=== PATIENT | male | born 1935 | race Caucasian/White ===

== ENCOUNTER 2017-06-19 02:28 | Observation (INO) | payer MEDICARE, OTHER ==
[~2017-06-19] VITALS: Ht 182.9 cm; Wt 97.6 kg
--- NOTE | 2017-06-19 02:30 | NUR ---
PT IMMEDIATELY TO RM 9.
[2017-06-19 02:55] LABS: HEMATOCRIT 40.1 % (39.0-50.0); HEMOGLOBIN 13.6 g/dl (14.0-18.0); IMMATURE GRANULOCYTES 0.5 % (0.0-1.0); MEAN CELL VOLUME 91.6 fL CALC (80.0-100.0); MEAN CORPUSCULAR HGB 31.1 pG CALC (26.0-32.0); MEAN CORPUSCULAR HGB CONC 33.9 g/L CALC (32.0-36.0); RED BLOOD COUNT 4.38 mill/uL (4.70-6.10); RED CELL DISTRI WIDTH 12.8 % (11.5-15.5)
--- NOTE | 2017-06-19 03:02 | NUR ---
CXR IN PROGRESS
[2017-06-19 03:10] LABS: ALBUMIN 4.1 g/dL (3.2-5.0); ALKALINE PHOSPHATASE 65 u/l (38-126); AMYLASE 36 u/l (30-110); ANION GAP 16 (6-22 (CALC)); BILIRUBIN, TOTAL 0.6 mg/dL (0.0-1.4); BUN 16 mg/dL (8-23); BUN/CREATININE RATIO 17 (12-20 (CALC)); CARBON DIOXIDE 25 mmol/l (22-30); CHLORIDE 95 mmol/l (95-108); CREATININE 0.9 mg/dL (0.7-1.3); GFR > 60 ML/MIN (>=60 (CALC)); GFR FOR AFR.AMER. > 60 ML/MIN (>=60 (CALC)); LIPASE 108 u/l (23-300); POTASSIUM 4.5 mmol/l (3.5-5.1); SGOT/AST 33 u/l (19-48); SGPT/ALT 35 u/l (11-66); SODIUM 131 mmol/l (137-146); TOTAL PROTEIN 6.5 g/dL (6.3-8.2)
[2017-06-19 03:19] LABS: ACT PARTIAL THROMBO TIME 32.8 SECONDS (20.0-32.5); PROTHROMBIN TIME 11.4 SECONDS (9.0-12.5)
[2017-06-19 03:22] LABS: MYOGLOBIN 66 ng/mL (0 - 121)
--- NOTE | 2017-06-19 03:56 | NUR ---
TO CT VIA W/C
--- NOTE | 2017-06-19 04:58 | NUR ---
DR TO BS TO RE-EVAL PT.
--- NOTE | 2017-06-19 05:28 | NUR ---
REPORT TO AIME. pT RESTING. NAD
--- NOTE | 2017-06-19 05:30 | NUR ---
PT TRANSFERRED TO FLOOR VIA STRETCHER ACCOMPANIED BY SELINA SCOTT AND FAMILY;PT AMBULATED TO BEDSIDE WITH WEAK GAIT;WT AND VS OBTAINED;PT ORIENTED TO ROOM AND CALL LIGHT SYSTEM;ASSESSMENT COMPLETED;A&O X3,PT NOTED TO BE HARD OF HEARING;PT REPORTS MID-STERNAL CHEST PAIN WITH ONE DAY OF ONSET,NOTHING MAKES IT BETTER OR WORSE;PT CURRENT PAIN LEVEL 8/10,MD TO BE NOTIFIED;TELE MONITOR IN PLACE;NITRO OINTMENT TO LEFT CHEST;RESPIRATIONS EVEN AND UNLABORED ON RA,CLEAR LUNG SOUNDS NOTED;#18G TO LAC FLUSHED AND PATENT;LAST BM 06/18/17;ABDOMEN SOFT ON PALPATION,ACTIVE BOWEL SOUNDS IN ALL 4 QUADS;PERRLA;WEAK PEDAL PULSES;SKIN INTACT;FALL PRECAUTIONS IN PLACE AND PT ENCOURAGED TO CALL FOR ASSISTANCE IF NEEDED;BED IN LOWEST POSITION WITH CALL LIGHT IN REACH;WILL CONTINUE TO MONITOR
--- NOTE | 2017-06-19 05:30 | NUR ---
PT TO FLOOR WITHOUT INCIDENT.
[2017-06-19 05:39] VITALS: BP 144/65
--- NOTE | 2017-06-19 06:20 | NUR ---
NEW ORDER RECEIVED FROM
--- NOTE | 2017-06-19 06:35 | NUR ---
PT MEDICATED WITH MORPHINE 2MG IVP FOR EPIGASTRIC/CHEST PAIN RATING 8/10 ON THE PAIN SCALE;WILL MONITOR FOR EFFECTIVENESS
[2017-06-19 07:45] VITALS: BP 112/56
--- NOTE | 2017-06-19 07:45 | NUR ---
ASSESSMENT IS COMPLETED: IV SITE IS FREE FROM REDNESS OR EDEMA. FAMILY IN THE ROOM. CONTINUES TO C/O ABD PAIN AND DISCOMFORT. WILL TALK WITH LAURA FELDMAN RE: ABD PAIN, MORPHINE WAS NOT HELPING. CONTINUE TO OSBERVE AND MONITOR.
--- NOTE | 2017-06-19 09:30 | NUR ---
MEDICATION WAS GIVEN , PT INQUIRED HOW LONG DOES IT TAKE TO COME IN EFFECT. WILL RECHECK IN 30 MINUTES. PT SITTING UP ON THE SIDE OF THE BED WITHIN 30-45MINUTES. GAVE MORPHINE AND THEN PT FINALLY WENT TO SLEEP.
[2017-06-19 10:19] LABS: URINE BILIRUBIN - DIPSTICK NEGATIVE (NEGATIVE); URINE BLOOD DIPSTICK NEGATIVE (NEGATIVE); URINE COLOR YELLOW; URINE GLUCOSE - DIPSTICK >=1000 mg/dL (NEGATIVE); URINE KETONE TRACE mg/dL (NEGATIVE); URINE LEUK ESTERASE NEGATIVE (NEGATIVE); URINE NITRITE - DIPSTICK NEGATIVE (Negative); URINE PH 6.5 (4.5-8.0); URINE PROTEIN - DIPSTICK NEGATIVE (NEG-TRACE); URINE SPECIFIC GRAVITY 1.015; URINE UROBILINOGEN - DIPSTICK 0.2 E.U./dL (0.2)
[2017-06-19] MEDS ORDERED: METFORMIN500 MG PO (10:24)
[2017-06-19 10:25] LABS: URINE CLARITY CLEAR
[2017-06-19] MEDS ORDERED: GLIMEPIRIDE4 MG PO (10:28)
[2017-06-19] MEDS ORDERED: LISINOPRIL5 MG PO (10:28)
[2017-06-19] MEDS ORDERED: TRULICITY0.75 MG/0. SC (10:38)
[2017-06-19] MEDS ORDERED: PIOGLITAZONE HC30 MG PO (10:41)
[2017-06-19] MEDS ORDERED: JARDIANCE25 MG PO (10:41)
[2017-06-19] MEDS ORDERED: SIMVASTATIN40 MG PO (10:42)
[2017-06-19] MEDS ORDERED: NASACORT A55 MCG/ACT NAB (10:50)
[2017-06-19 11:06] VITALS: BP 114/56
--- NOTE | 2017-06-19 11:30 | NUR ---
PT IS RESTING WITH EYES CLOSED FAMILY IN THE ROOM. LOOKS COMFORTABLE AT THIS TIME. CONTINUE TO OBSERVE AND MONTIOR.
--- NOTE | 2017-06-19 12:25 | NUR ---
PT IS RELAXING IN BED WITH FAMILY IN THE ROOM; CONTINUE TO OBSERVE AND MONITOR.
[2017-06-19 15:22] VITALS: BP 129/59
--- NOTE | 2017-06-19 16:00 | NUR ---
PT IS RESTING WITH EYES CLOSED FAMILY IN THE ROOM. IV SITE IS FREE FROMR EDNESS OR EDEMA. CONTINUE TO OSBERVE AND MONITOR.
--- NOTE | 2017-06-19 16:08 | NUR ---
Patient is feeling okay. Glucose today is 209 mg/dl. Patient was given Novolog 1 Unit SC at 0817 and 1 unit at 1114. c
--- NOTE | 2017-06-19 19:20 | NUR ---
REPORT RECEIVED FROM IRINA HALEY;PT RESTING IN BED WITH AT BEDSIDE;INTRODUCED SELF TO PT AND POC DISCUSSED;PT DENIES ANY NEEDS AT THIS TIME;ENCOURAGED PT TO CALL FOR ASSISTANCE IF NEEDED;CALL LIGHT IN REACH;WILL CONTINUE TO MONITOR
[2017-06-19 20:05] VITALS: BP 114/59
--- NOTE | 2017-06-19 21:20 | NUR ---
PT RESTING IN SEMI FOWLERS POSITION;A&O X3;ASSESSMENT COMPLETED;RESPIRATIONS EVEN AND UNLABORED RA,CLEAR LUNG SOUNDS NOTED;ABDOMEN SOFT UPON PALPATION;STRONG PEDAL PULSES;PT DENIES ANY CHEST PAIN AT THIS TIME;#18G TO LAC INFUSING NS @ 100ML/HR,SITE APPEARS HEALTHY AND FREE FROM EDEMA;TELE MONITOR IN PLACE;BLANKET AND PILLOW PROVIDED FOR SPOUSE;PT DENIES ANY NEEDS AT THIS TIME;SAFETY PRECAUTIONS REINFORCED WITH CALL LIGHT IN REACH;WILL CONTINUE TO MONITOR
[2017-06-20] VITALS (7 sets, daily range): BP systolic 106–134; BP diastolic 37–70
--- NOTE | 2017-06-20 00:55 | NUR ---
PT APPEARS TO BE SLEEPING IN SEMI FOWLERS POSITION;WOKE PT TO OBTAIN VS,WAKES TO VERBAL STIMULI;CURRENT TEMP 100.0,BLANKETS REMOVED AND AC LOWERED;PT DENIES ANY CHEST PAIN OR NEEDS;PT EDUCATED ON THE NEED FOR A STOOL SAMPLE AND VERBALIZES UNDERSTANDING;CALL LIGHT IN REACH;WILL CONTINUE TO MONITOR
--- NOTE | 2017-06-20 04:50 | NUR ---
PT RESTING IN BED WITH SPOUSE AT BEDSIDE;PT DENIES ANY CHEST PAIN;IV FLUIDS INFUSING WELL TO LAC;TELE MONITOR IN PLACE;CURRENT TEMP 99.0;VS OBTAINED;PT ENCOURAGED TO CALL FOR ASSISTANCE IF NEEDED;CALL LIGHT IN REACH;WILL CONTINUE TO MONITOR
[2017-06-20 05:56] LABS: ANION GAP 16 (6-22 (CALC)); BUN 16 mg/dL (8-23); BUN/CREATININE RATIO 18 (12-20 (CALC)); CARBON DIOXIDE 24 mmol/l (22-30); CHLORIDE 95 mmol/l (95-108); CREATININE 0.9 mg/dL (0.7-1.3); GFR > 60 ML/MIN (>=60 (CALC)); GFR FOR AFR.AMER. > 60 ML/MIN (>=60 (CALC)); MAGNESIUM 1.5 mg/dL (1.6-2.3); SODIUM 130 mmol/l (137-146)
[2017-06-20 05:57] LABS: CHOLESTEROL HDL RATIO 1.5 (<4.4 (CALC))
[2017-06-20 06:00] LABS: POTASSIUM 5.4 mmol/l (3.5-5.1)
[2017-06-20 06:01] LABS: HEMATOCRIT 40.7 % (39.0-50.0); HEMOGLOBIN 13.7 g/dl (14.0-18.0); IMMATURE GRANULOCYTES 0.8 % (0.0-1.0); MEAN CELL VOLUME 92.7 fL CALC (80.0-100.0); MEAN CORPUSCULAR HGB 31.2 pG CALC (26.0-32.0); MEAN CORPUSCULAR HGB CONC 33.7 g/L CALC (32.0-36.0); NEUT# 12.36 thou/uL (1.82-7.42); RED BLOOD COUNT 4.39 mill/uL (4.70-6.10)
--- NOTE | 2017-06-20 08:10 | NUR ---
PT SITTING IN CHAIR; SPOUSE IN ROOM; PT DENIES PAIN OR DISCOMFORT; TELE MONITOR IN PLACE; IVF INFUSING WITHOUT DIFFICULTY; CALL GAMBOA WITHIN REACH; WILL CONTINUE TO MONITOR.
--- NOTE | 2017-06-20 13:30 | NUR ---
PT AMBULATORY IN ROOM; FAMILY IN TO VISIT; CALL GAMBOA WITHIN REACH; WILL CONTINUE TO MONITOR.
[2017-06-20 14:32] LABS: BUN 17 mg/dL (8-23); BUN/CREATININE RATIO 18 (12-20 (CALC)); CARBON DIOXIDE 20 mmol/l (22-30); CHLORIDE 96 mmol/l (95-108); CREATININE 0.9 mg/dL (0.7-1.3); GFR > 60 ML/MIN (>=60 (CALC)); GFR FOR AFR.AMER. > 60 ML/MIN (>=60 (CALC)); SODIUM 130 mmol/l (137-146)
[2017-06-20 14:35] LABS: ANION GAP 19 (6-22 (CALC)); POTASSIUM 5.4 mmol/l (3.5-5.1)
--- NOTE | 2017-06-20 14:42 | NUR ---
DR. SCHMIDT IN TO SEE PT; PLAN OF CARE DISCUSSED
--- NOTE | 2017-06-20 17:46 | NUR ---
PT IN RECLINER VISITING WITH FAMILY; IVF INFUSING WELL; NO COMPLAINTS VOICED; CALL GAMBOA WITHIN REACH; WILL CONTINUE TO MONITOR.
--- NOTE | 2017-06-20 19:15 | NUR ---
REPORT RECEIVED FROM SELINA MARTE;PT AND SPOUSE UP TO BEDSIDE;INTRODUCED SELF TO PT AND POC DISCUSSED;PT DENIES ANY CP AT THIS TIME;PT ENCOURAGED TO CALL FOR ASSISTANCE IF NEEDED;CALL LIGHT IN REACH;WILL CONTINUE TO MONITOR
--- NOTE | 2017-06-20 21:15 | NUR ---
PT RESTING IN BED WITH SPOUSE AT BEDSIDE;A&O X3,HARD OF HEARING NOTED;ASSESSMENT COMPLETED;RESPIRATIONS EVEN AND UNLABORED ON RA,CLEAR LUNG SOUNDS;NON-PRODUCTIVE COUGH NOTED;ABDOMEN SOFT,ACTIVE IN ALL 4 QUADS;STRONG PEDAL PULSES;TELE MONITOR IN PLACE;#18G TO LAC INFUSING NS @ 100ML/HR WELL,SITE APPEARS HEALTHY;PT ENCOURAGED PO FLUIDS AND TO VOID IN THE URINAL FOR ACCURATE I&O'S THROUGHOUT SHIFT;TEMP 100.1,AC LOWERED AND BLANKET REMOVED;SKIN INTACT;PAIN SCALE AND REPORTING REVIEWED;SAFETY PRECAUTIONS REINFORCED WITH BED IN THE LOWEST POSITION;CALL LIGHT IN REACH;WILL CONTINUE TO MONITOR
--- NOTE | 2017-06-21 | NUR ---
WOKE PT TO ADMINISTER SCHEDULED MEDICATION;SPOUSE REMAINS AT BEDSIDE;PT VOICES NO COMPLAINTS OF PAIN;TELE MONITOR IN PLACE;IV FLUIDS INFUSING WELL TO LAC;PT ENCOURAGED PO FLUIDS;URINAL AT BEDSIDE;WILL CONTINUE TO MONITOR
--- NOTE | 2017-06-21 04:00 | NUR ---
PT APPEARS TO BE SLEEPING WITH SPOUSE AT BEDSIDE;WOKE PT TO OBTAIN VS;PT DENIES ANY PAIN OR DISCOMFORTS TO HIS CHEST;RESPIRATIONS EVEN AND UNLABORED ON RA;IV FLUIDS INFUSING WELL TO LAC;TELE MONITOR IN PLACE;CALL LIGHT IN REACH;WILL CONTINUE TO MONITOR
[2017-06-21 04:01] VITALS: BP 116/52
--- NOTE | 2017-06-21 04:25 | NUR ---
PT TRANSFERRED TO [facility] VIA WC ACCOMPANIED BY WRITTER
--- NOTE | 2017-06-21 04:35 | NUR ---
PT RETURNED BACK TO FLOOR
[2017-06-21 05:04] LABS: HEMOGLOBIN 11.9 g/dl (14.0-18.0); IMMATURE GRANULOCYTES 0.5 % (0.0-1.0); MEAN CELL VOLUME 91.6 fL CALC (80.0-100.0); MEAN CORPUSCULAR HGB 31.2 pG CALC (26.0-32.0); NEUT# 6.82 thou/uL (1.82-7.42); RED BLOOD COUNT 3.82 mill/uL (4.70-6.10); RED CELL DISTRI WIDTH 13.1 % (11.5-15.5)
[2017-06-21 05:34] LABS: ANION GAP 12 (6-22 (CALC)); BUN 16 mg/dL (8-23); BUN/CREATININE RATIO 18 (12-20 (CALC)); CARBON DIOXIDE 23 mmol/l (22-30); CHLORIDE 100 mmol/l (95-108); CREATININE 0.9 mg/dL (0.7-1.3); GFR > 60 ML/MIN (>=60 (CALC)); GFR FOR AFR.AMER. > 60 ML/MIN (>=60 (CALC)); POTASSIUM 4.1 mmol/l (3.5-5.1); SODIUM 130 mmol/l (137-146)
--- NOTE | 2017-06-21 08:00 | NUR ---
PT UP IN CHAIR; TOLERATING BREKFAST WELL; TELE MONITOR IN PLACE; IVF INFUSING WITHOUT DIFFICULTY; NO COMPLAINTS OF PAIN OR DISCOMFORT VOICED; CALL GAMBOA WITHIN REACH; WILL CONTINUE TO MONITOR.
[2017-06-21 08:03] VITALS: BP 110/73
[2017-06-21 10:59] VITALS: BP 123/65
[2017-06-21] MEDS ORDERED: PANTOPRAZOLE SO40 M1 PO (11:01)
[2017-06-21] MEDS ORDERED: SUCRALFATE1 GM/10 ML PO (11:01)
--- NOTE | 2017-06-21 11:36 | NUR ---
DR. SCHMIDT IN TO SEE PT; PLAN OF CARE DISCUSSED
--- NOTE | 2017-06-21 13:08 | NUR ---
Discharge instructions given. Patient verbalizes understanding of same. Discharged in stable condition via Wheelchair to Home with family. All belongings sent with pt.
== END 2017-06-21 13:00 | disposition home or self-care (01) ==
LOC: ED 02:28 → ED-I 04:00 → ED 05:11 → MS2 05:12
PROVIDERS: Emergency Medicine; Internal Medicine; Nurse Practitioner Family; ADMIT Internal Medicine; ATTEND Internal Medicine
DX: R07.89 Other chest pain (principal); K21.9 Gastro-esophageal reflux disease without esophagitis; E11.9 Type 2 diabetes mellitus without complications; E78.5 Hyperlipidemia, unspecified; K22.5 Diverticulum of esophagus, acquired; E87.1 Hypo-osmolality and hyponatremia; K31.89 Other diseases of stomach and duodenum; R19.5 Other fecal abnormalities; R50.9 Fever, unspecified; Z79.84 Long term (current) use of oral hypoglycemic drugs
CPT/HCPCS: J3475; Q9967

== ENCOUNTER 2017-07-22 07:47 | Day surgery (SDC) | payer MEDICARE, OTHER ==
[~2017-07-22] VITALS: Ht 182.9 cm; Wt 97.1 kg
[~2017-07-22 07:47] MED LIST: ADULT ASPIRIN R81 MG PO; B-121000 MCG PO; CARAFATE1 GM/10 ML PO; D3400 UNI1 PO; GLIMEPIRIDE4 MG PO; JARDIANCE25 MG PO; LISINOPRIL5 MG PO; METFORMIN HCL1000 MG PO; METFORMIN500 MG PO; NASACORT A55 MCG/ACT NAB; PANTOPRAZOLE SO40 M1 PO; PIOGLITAZONE HC30 MG PO; SIMVASTATIN40 MG PO; SIMVASTATIN80 MG PO; SUCRALFATE1 GM/10 ML PO; TRULICITY0.75 MG/0. SC; VIT B6 PO
[2017-07-22 11:47] VITALS: BP 164/73
== END 2017-07-22 10:30 | disposition home or self-care (01) ==
LOC: ENDO 07:47 → ORM 09:45 → ENDO 10:30
PROVIDERS: ATTEND Surgery
PROC: 0DB48ZX Excision of Esophagogastric Junction, Via Natural or Artificial Opening Endoscopic, Diagnostic (ICD-10-PCS; principal; 2017-07-22)
PROC: 0DB78ZX Excision of Stomach, Pylorus, Via Natural or Artificial Opening Endoscopic, Diagnostic (ICD-10-PCS; 2017-07-22)
PROC: 0DJD8ZZ Inspection of Lower Intestinal Tract, Via Natural or Artificial Opening Endoscopic (ICD-10-PCS; 2017-07-22)
DX: K29.51 Unspecified chronic gastritis with bleeding (principal); K29.81 Duodenitis with bleeding; K44.9 Diaphragmatic hernia without obstruction or gangrene; K57.30 Diverticulosis of large intestine without perforation or abscess without bleeding; E11.9 Type 2 diabetes mellitus without complications

== ENCOUNTER 2018-03-10 06:16 | Day surgery (SDC) | payer MEDICARE, OTHER ==
[~2018-03-10] VITALS: Ht 182.9 cm; Wt 97.5 kg
[~2018-03-10 06:16] MED LIST changes: +CALCI23 PO; +ECHINACE9 PO; +STOOL SOFTE1 PO; +SUPER BETA PROSTATE PO; +VITAMIN7 PO
[2018-03-10 08:40] VITALS: BP 136/63
== END 2018-03-10 08:20 | disposition home or self-care (01) ==
LOC: ENDO 06:16 → ORM 08:15 → ENDO 08:15
PROVIDERS: ATTEND Surgery
PROC: 0DB48ZX Excision of Esophagogastric Junction, Via Natural or Artificial Opening Endoscopic, Diagnostic (ICD-10-PCS; principal; 2018-03-10)
DX: K22.8 Other specified diseases of esophagus (principal); E11.9 Type 2 diabetes mellitus without complications; Z79.84 Long term (current) use of oral hypoglycemic drugs

== ENCOUNTER 2023-06-02 12:32 | Inpatient (IN) | payer MEDICARE, OTHER ==
[2023-06-02] VITALS (21 sets, daily range): BP systolic 95–147; BP diastolic 47–82
[~2023-06-02] VITALS: Ht 182.9 cm; Wt 83.3 kg
--- NOTE | 2023-06-02 12:40 | NUR ---
[facility]ARON TO ROOM 14 VIA EMS
[2023-06-02 13:13] LABS: BASO% 0.1 % (0-3); HEMATOCRIT 33.6 % (39.0-50.0); HEMOGLOBIN 10.8 g/dl (14.0-18.0); IMMATURE GRANULOCYTES 0.6 % (0.0-5.0); LYMPH% 3.2 % (15-41); MEAN CELL VOLUME 97.7 fL CALC (80.0-100.0); MEAN CORPUSCULAR HGB 31.4 pG CALC (26.0-32.0); MEAN CORPUSCULAR HGB CONC 32.1 g/dL CAL (32.0-36.0); MONO% 11.7 % (2-13); NEUT# 7.43 thou/uL (1.82-7.42); NEUT% 84.4 % (42-76); RED BLOOD COUNT 3.44 mill/uL (4.70-6.10); RED CELL DISTRI WIDTH 13.8 % (11.5-15.5)
[2023-06-02 13:13] LABS: URINE BILIRUBIN - DIPSTICK Negative (NEGATIVE); URINE BLOOD DIPSTICK Moderate (NEGATIVE); URINE GLUCOSE - DIPSTICK >=1000 mg/dL (NEGATIVE); URINE KETONE Negative (NEGATIVE); URINE LEUK ESTERASE Trace (NEGATIVE); URINE NITRITE - DIPSTICK Negative (Negative); URINE PH 5.5 (4.5-8.0); URINE PROTEIN - DIPSTICK 100 mg/dL (NEG-TRACE); URINE SPECIFIC GRAVITY 1.015; URINE UROBILINOGEN - DIPSTICK 0.2 E.U./dL (0.2)
[2023-06-02 13:16] LABS: URINE COLOR Yellow
[2023-06-02 13:23] LABS: URINE SQUAMOUS EPITHELIAL CELL RARE EPI/hpf (0-FEW)
[2023-06-02 13:24] LABS: URINE BACTERIA MANY hpf
[2023-06-02 13:27] LABS: ALBUMIN 3.8 g/dL (3.2-5.0); ALKALINE PHOSPHATASE 48 u/l (38-126); BILIRUBIN, TOTAL 0.5 mg/dL (0.2-1.3); BUN 33 mg/dL (8-23); BUN/CREATININE RATIO 32 (12-20 (CALC)); CARBON DIOXIDE 29 mmol/l (22-30); CHLORIDE 95 mmol/l (95-108); CREATININE 1.1 mg/dL (0.7-1.3); GFR FOR AFR.AMER. > 60 ML/MIN (>=60 (CALC)); GFR OTHER RACES > 60 ML/MIN (>=60 (CALC)); SGOT/AST 38 u/l (19-48); SODIUM 132 mmol/l (137-146); TOTAL PROTEIN 6.3 g/dL (6.3-8.2)
[2023-06-02 13:30] LABS: ANION GAP 12 (6-22 (CALC)); POTASSIUM 3.8 mmol/l (3.5-5.1)
[2023-06-02] MEDS ORDERED: TAMSULOSIN HCL0.4 MG PO (14:01)
[2023-06-02] MEDS ORDERED: JARDIANCE25 MG PO (14:03)
[2023-06-02] MEDS ORDERED: FUROSEMIDE20 MG PO (14:05)
[2023-06-02] MEDS ORDERED: OZEMPIC2 MG SC (14:13)
--- NOTE | 2023-06-02 15:40 | NUR ---
PATIENT AND DAUGHTER LEAVING AT THSI TIME. PATIENT AN DFAMILY STATES UNDERSTANDING OF ADMISSION AND AGREE TO STAY.
--- NOTE | 2023-06-02 17:28 | NUR ---
REPORT CALLED TO NURSE BUTLER ON MEDICAL/SURGICAL
--- NOTE | 2023-06-02 18:19 | NUR ---
PT ARRIVED TO [place] VIA BED. PT UNABLE TO STAND. PT A/O3 HARD OF HEARING. IV SITE NOTED FLUIDS INFUSING. HEART RHYTHM ON MONITOR. RESPIRATIONS ON ROOM AIR. PT ON MALE PUREWICK FOR VOIDING. PT STATED LAST BM 06/01/23. PT NOTED EDEMA ON BILATERAL LEGS AND NOTED SKINTEARS AND REDNESS DUE TO FALLS AT HOME. PT DENIES ADDITIONAL NEEDS AT THE TIME DIETARY CALLED FOR PT TRAY. ALL SAFETY PRECAUTIONS IN PLACE WITH CALL LIGHT IN REACH AND BED ALARM ACTIVE.
--- NOTE | 2023-06-02 19:24 | NUR ---
Bedside report reveived from off going nurse. Patient resting in bed with eyes open. Denies pain or discomfort at this time. Patient is alert and orinetd but hard of hearing. Able to understand others when spoken to in left ear and reads lips. Supper tray at bedside and patient states that he will eat later. Respirations even and unlabored on room air. IV fluids in place. Safety measures in place.
--- NOTE | 2023-06-02 22:24 | NUR ---
Patient resting with eyes closed in bed. Respirations even and unlabored on room air. IV fluids continue. No signs of distress noted. Safety measures in place. Call light within reach.
[2023-06-03 00:13] VITALS: BP 132/66
--- NOTE | 2023-06-03 03:15 | NUR ---
Patient awake in bed requesting another throat lozenge. Also a snack was provided per patient request. Denies pain or discomfort. Respirations even and unlabored on room air. Call light within reach.
[2023-06-03 05:53] LABS: BASO% 0.1 % (0-3); HEMATOCRIT 32.4 % (39.0-50.0); HEMOGLOBIN 10.7 g/dl (14.0-18.0); IMMATURE GRANULOCYTES 0.1 % (0.0-5.0); MEAN CELL VOLUME 97.9 fL CALC (80.0-100.0); MEAN CORPUSCULAR HGB 32.3 pG CALC (26.0-32.0); NEUT# 6.28 thou/uL (1.82-7.42); NEUT% 85.8 % (42-76); RED BLOOD COUNT 3.31 mill/uL (4.70-6.10); RED CELL DISTRI WIDTH 13.9 % (11.5-15.5)
[2023-06-03 06:25] LABS: ALBUMIN 3.2 g/dL (3.2-5.0); ALKALINE PHOSPHATASE 45 u/l (38-126); ANION GAP 7 (6-22 (CALC)); BILIRUBIN, TOTAL 0.4 mg/dL (0.2-1.3); BUN 31 mg/dL (8-23); BUN/CREATININE RATIO 31 (12-20 (CALC)); CARBON DIOXIDE 33 mmol/l (22-30); CHLORIDE 97 mmol/l (95-108); GFR FOR AFR.AMER. > 60 ML/MIN (>=60 (CALC)); GFR OTHER RACES > 60 ML/MIN (>=60 (CALC)); MAGNESIUM 1.3 mg/dL (1.6-2.3); POTASSIUM 3.7 mmol/l (3.5-5.1); SGOT/AST 41 u/l (19-48); SODIUM 134 mmol/l (137-146); TOTAL PROTEIN 5.3 g/dL (6.3-8.2)
--- NOTE | 2023-06-03 07:16 | NUR ---
PT RESTING IN LOW FOWLERS POSITION. PT A/O PT WEAK .PT ABLE TO USE CALL LIGHT FOR NEEDS PER REPORT. IV SITE NOTED INFUSING WITH FLUIDS. PT TEMP NOTED NIGHT NURSE MEDICATED PER EMAR. PT SHIVERING PER NIGHT NURSE UNABLE TO NOTE BP PER PT SHAKING. PT RESPIRATIONS ON ROOM AIR TELE NOTED. PT DENIES ADDITIONAL NEEDS AT THE TIME ALL SAFETY PECAUTIONS IN PLACE WITH CALL LIGHT INREACH.
[2023-06-03 07:24] VITALS: BP 119/52
--- NOTE | 2023-06-03 09:24 | NUR ---
PT HAD BM INCON ON BATHROOM FLOOR. PT WAS GIVEN A FULL BATH, NEW GOWN AND NEW BRIEF. PT SITTING UP IN CHAIR NOW.
[2023-06-03 11:09] VITALS: BP 111/51
--- NOTE | 2023-06-03 12:02 | NUR ---
PT REQUESTED ICE CREAM , DIETARY INFORMED STATED WILL BRING ICECREAM IF AVAILABLE. ONLY VANILLA POSSIBLY AVAILABLE.
[2023-06-03 15:35] VITALS: BP 111/44
--- NOTE | 2023-06-03 16:40 | NUR ---
PT NOTED MINIMAL URINE OUPUT PROVIDER NOTIFIED.PT USING URINAL IN BED URINE NOT FALLING INTO URINAL VOIDING ON GOWN , PT CLEANED UP AND PROVIDED NEW GOWN.
--- NOTE | 2023-06-03 17:30 | NUR ---
PROVIDER NOTIFIED OF PT OUTPUT MINIMAL. ONLY 50 NOTED IN URINAL . PT STATED URINE IS DRIBBLING OUT . PT BLADDER SCANNED PER ORDER. 1404 NOTED IN URINE REASSESSED WITH RN GREATER THAT 1545 NOTED . NOTIFIED OF BLADDER SCAN ORDER FOR MARIA. PT RECIEVED MARIA SLIGHT DIFFUCULTY UPON PLACING DUE TO HX OF ENLARGED PROSTATE. MARIA IN PLACE DRAINING PER GRAVITY OUTPUT OF 1600. PT DENIES ADDITIONAL NEEDS AT THE TIME OTHER THAN ICE CREAM PER REQUEST ALL SAFETY PRECAUTIONS IN PLACE WITH BED ALARM ACTIVE.
--- NOTE | 2023-06-03 18:17 | NUR ---
PT UP EATING AT THE TIME PT STATED COLD SHIVERING ROOM TEMP ADJUSTED, WARM SHEET PROVIDED. BP TO BE ASSESSED WHEN PT DONE EATING.
[2023-06-03 18:36] VITALS: BP 152/68
--- NOTE | 2023-06-03 18:38 | NUR ---
PT ADJUSTED INTO BED WITH BLANKETS AND WARM SHEETS, PT SHIVERING PT BP 152/68 HR 101 PT SHIVERING ANF REACHING FOR DRINKS ON BED SIDE TABLE. HR UNSTABLE ON TELE MONITOR READING.
--- NOTE | 2023-06-03 18:45 | NUR ---
SLIME MCKEON PROVIDED WITH PT EKG ORDERED.RT IN ROOM NOW.
--- NOTE | 2023-06-03 19:15 | NUR ---
PROVIDER AWARE OF PT EKG , HR RHYTHM PER ER MONITORING. SLIME MCKEON APPLIED EKG COMPLETED. STATED TO CHECK BLOOD SUGAR . 302 NOTED PT DID EAT DINNER AND HAD ICE CREAM PER REQUEST. NIGHT SHIFTNOTIFIED OF EVENT. NO NEW ORDERS AT THE TIME. PT RESTING IN BED STATES NO PAIN . PT AWARE OF EVENT PT STATED JUST COLD. ALL SAFETY PRECAUTIONS IN PLACE WITH CALL LIGHT IN REACH. BED ALARM ACTIVE.
[2023-06-03 19:22] VITALS: BP 122/55
--- NOTE | 2023-06-03 19:56 | NUR ---
Bedside report received from off going nurse. Patient awake in bed and talkative. Prior to shift change, MD contacted regarding patient heart rate. New orders were placed and MD made aware of EKG results. Will continue to monitor patient for change in condition. Miguel A hugger in place for warmth. Extra blankets provided. IV fluids continue. Nance catheter in place and draining clear yellow urine. Safety measures in place.
[2023-06-03 20:39] LABS: HEMATOCRIT 27.8 % (39.0-50.0); HEMOGLOBIN 9.1 g/dl (14.0-18.0); MEAN CELL VOLUME 96.9 fL CALC (80.0-100.0); MEAN CORPUSCULAR HGB 31.7 pG CALC (26.0-32.0); MEAN CORPUSCULAR HGB CONC 32.7 g/dL CAL (32.0-36.0); RED BLOOD COUNT 2.87 mill/uL (4.70-6.10); RED CELL DISTRI WIDTH 13.8 % (11.5-15.5)
[2023-06-03 20:44] LABS: ANION GAP 10 (6-22 (CALC)); BUN 35 mg/dL (8-23); BUN/CREATININE RATIO 34 (12-20 (CALC)); CHLORIDE 98 mmol/l (95-108); GFR FOR AFR.AMER. > 60 ML/MIN (>=60 (CALC)); GFR OTHER RACES > 60 ML/MIN (>=60 (CALC)); POTASSIUM 3.2 mmol/l (3.5-5.1); SODIUM 128 mmol/l (137-146)
[2023-06-03 20:46] LABS: CARBON DIOXIDE 23 mmol/l (22-30)
[2023-06-04] VITALS (12 sets, daily range): BP systolic 80–124; BP diastolic 26–55
--- NOTE | 2023-06-04 01:18 | NUR ---
Patient repositioned in bed to lay supine but then proceeded to return to right side lying position. Patient educated on importance of off loading pressure. Patient verbalizes understanding. Nance catheter emptied. Water offered and patient accepted water to drink. Denies pain or discomfort. Safety meaures in place. IV fluids continue. Call light within reach.
--- NOTE | 2023-06-04 05:10 | NUR ---
Patient sitting up on edge of bed. Respirations even and unlabored on room air. Denies pain or discomfort at this time. Water provided. Safety measures in place. IV fluids continue. Call light within reach.
[2023-06-04 06:22] LABS: BASO% 0.3 % (0-3); HEMATOCRIT 28.3 % (39.0-50.0); HEMOGLOBIN 9.5 g/dl (14.0-18.0); IMMATURE GRANULOCYTES 0.4 % (0.0-5.0); LYMPH% 7.6 % (15-41); MEAN CELL VOLUME 97.6 fL CALC (80.0-100.0); MEAN CORPUSCULAR HGB 32.8 pG CALC (26.0-32.0); MEAN CORPUSCULAR HGB CONC 33.6 g/dL CAL (32.0-36.0); MONO% 9.8 % (2-13); NEUT# 6.32 thou/uL (1.82-7.42); NEUT% 81.9 % (42-76); RED BLOOD COUNT 2.9 mill/uL (4.70-6.10); RED CELL DISTRI WIDTH 13.7 % (11.5-15.5)
[2023-06-04 06:28] LABS: ALBUMIN 2.9 g/dL (3.2-5.0); ALKALINE PHOSPHATASE 54 u/l (38-126); ANION GAP 9 (6-22 (CALC)); BILIRUBIN, TOTAL 0.4 mg/dL (0.2-1.3); BUN 32 mg/dL (8-23); BUN/CREATININE RATIO 34 (12-20 (CALC)); CARBON DIOXIDE 27 mmol/l (22-30); CHLORIDE 99 mmol/l (95-108); CREATININE 0.9 mg/dL (0.7-1.3); GFR FOR AFR.AMER. > 60 ML/MIN (>=60 (CALC)); GFR OTHER RACES > 60 ML/MIN (>=60 (CALC)); POTASSIUM 3.7 mmol/l (3.5-5.1); SGOT/AST 42 u/l (19-48); SODIUM 131 mmol/l (137-146); TOTAL PROTEIN 5.1 g/dL (6.3-8.2)
[2023-06-04 06:39] LABS: MAGNESIUM 1.7 mg/dL (1.6-2.3)
--- NOTE | 2023-06-04 07:32 | NUR ---
pt alert, oriented, sitting up on side of bed, bp 91/52, hr 50, 95% on radillon noted, pt reports having a cough "sometimes" reports having yellow mucus with cough "sometimes". +2 edema noted to bilateral lower extremities, denies pain at this time.
--- NOTE | 2023-06-04 08:14 | NUR ---
Preliminary blood culture results of 1 of 4 bottles growing gram negative rods called to Maddie Jamison APRN. New order received to change ceftriaxone to cefepime.
--- NOTE | 2023-06-04 10:46 | NUR ---
Treatment on hold for this morning per nursing request as patient had just got back to bed and was recieving care from nursing. PT informed.
--- NOTE | 2023-06-04 20:00 | NUR ---
RECEIVED REPORT FROM NURSE SHANNA WALKER RESTING IN BED, ALERT ORIENTED, WITH SOME CONFUSIONS NOTED, IV ON RFA G 22 NS @ 100CC/HR INFUSING WELL, HOOKED ON TELEMETRY, LUNG SOUNDS CLEAR, DENIES PAIN , BS 350, NOTIFIED [employer] MANAGER [employer] OFFICER STARTED ON SLIDING SCALE, PATIENT HAS MARIA CATH DRAINING YELLOW CLOUDY URINE, CALL LIGHT IN REACH, BED ALARM IN PLACED.
--- NOTE | 2023-06-04 23:50 | NUR ---
PT WAS GIVEN DARRIUS CARE AND LINEN CHANGED, PT HAD NO BM, PROTECTIVE CREAM APPLIED TO BOTTOM . PT WAS POSTIONED ON RIGHT SIDE WITH PILLOWS.
[2023-06-05] VITALS (11 sets, daily range): BP systolic 90–109; BP diastolic 45–86
--- NOTE | 2023-06-05 | NUR ---
PATIENT REPOSITIONED, ON RT SIDE LYING, WANTED LIGHT ON, PATIEMT DENIES P[AIN AT THIS TIME, BREATHING EVEN UNLABORED.
--- NOTE | 2023-06-05 04:31 | NUR ---
patient weighed using katie lift 83.3kg
[2023-06-05 06:49] LABS: BASO% 0.3 % (0-3); EOS% 0.1 % (0-8); HEMATOCRIT 25.7 % (39.0-50.0); HEMOGLOBIN 8.4 g/dl (14.0-18.0); IMMATURE GRANULOCYTES 0.4 % (0.0-5.0); MEAN CELL VOLUME 97.7 fL CALC (80.0-100.0); MEAN CORPUSCULAR HGB 31.9 pG CALC (26.0-32.0); MEAN CORPUSCULAR HGB CONC 32.7 g/dL CAL (32.0-36.0); MONO% 9.8 % (2-13); NEUT# 5.43 thou/uL (1.82-7.42); NEUT% 77.4 % (42-76); RED BLOOD COUNT 2.63 mill/uL (4.70-6.10); RED CELL DISTRI WIDTH 13.9 % (11.5-15.5)
[2023-06-05 07:40] LABS: ALBUMIN 2.6 g/dL (3.2-5.0); ALKALINE PHOSPHATASE 73 u/l (38-126); ANION GAP 7 (6-22 (CALC)); BILIRUBIN, TOTAL 0.3 mg/dL (0.2-1.3); BUN 36 mg/dL (8-23); BUN/CREATININE RATIO 36 (12-20 (CALC)); CARBON DIOXIDE 27 mmol/l (22-30); CHLORIDE 100 mmol/l (95-108); GFR FOR AFR.AMER. > 60 ML/MIN (>=60 (CALC)); GFR OTHER RACES > 60 ML/MIN (>=60 (CALC)); MAGNESIUM 1.5 mg/dL (1.6-2.3); POTASSIUM 3.3 mmol/l (3.5-5.1); SGOT/AST 90 u/l (19-48); SODIUM 130 mmol/l (137-146); TOTAL PROTEIN 4.6 g/dL (6.3-8.2)
--- NOTE | 2023-06-05 10:07 | NUR ---
SUE AT BEDSIDE DISCUSSING PLAN OF CARE WITH PT AND FAMILY.
--- NOTE | 2023-06-05 11:19 | NUR ---
CONCENT SIGNED BY , BLOOD PRODUCT CHECKED AND VERIFIED WITH 2ND NURSE, VITALS PRE INFUSION 96.7, HR 61, BP 105/51, O2 AT 100% ON ROOM AIR. INFUSIONS STARTED.
--- NOTE | 2023-06-05 12:40 | NUR ---
DR JUDD AT BEDSIDE DISCUSSING PLAN OF CARE WITH PT.
--- NOTE | 2023-06-05 14:47 | NUR ---
RBC'S COMPLETED, PT TOLERATED WITHOUT ANY ISSUES.
--- NOTE | 2023-06-05 20:00 | NUR ---
RECEIVED BEDSIDE REPORT FROM DAYSHIFT NURSE. PT IS SITTING IN SIDE OF BED SLEEPING. PT HAS BEEN MADE AWARE OF CHANGE OF SHIFT AND OF NURSE. PLAN OF CARE HAS BEEN ESTABLISHED WITH PT. NO PAIN CON COMPLAINTS AT THIS TIME. SFATEY PRECAUTIONS IN PLACE AND CALL LIGHT WITHIN REACH.
--- NOTE | 2023-06-06 | NUR ---
PT IS SLEEPING COMFORTABLY IN BED AT THIS TIME. NO SIGNS OF PAIN OR DISCOMFORT AT THIS MOMENT. SAFETY PRECAUTIONS IN PLACE AND CALL LIGHT WITHIN REACH.
[2023-06-06 00:07] VITALS: BP 113/57
--- NOTE | 2023-06-06 04:00 | NUR ---
PT IS SLEEPING COMFORTABLY IN BED AT THIS TIME. SAFETY PRECAUTIONSIN PLACE AND CALL LIGHT WITHIN REACH.
[2023-06-06 04:12] VITALS: BP 111/59
[2023-06-06 04:59] LABS: BASO% 0.1 % (0-3); EOS% 0.3 % (0-8); HEMATOCRIT 31.2 % (39.0-50.0); IMMATURE GRANULOCYTES 0.4 % (0.0-5.0); LYMPH% 13.4 % (15-41); MEAN CELL VOLUME 96.9 fL CALC (80.0-100.0); MEAN CORPUSCULAR HGB 32.9 pG CALC (26.0-32.0); MONO% 8.5 % (2-13); NEUT# 5.17 thou/uL (1.82-7.42); NEUT% 77.3 % (42-76); RED BLOOD COUNT 3.22 mill/uL (4.70-6.10); RED CELL DISTRI WIDTH 13.7 % (11.5-15.5)
[2023-06-06 05:09] LABS: HEMOGLOBIN 10.6 g/dl (14.0-18.0)
[2023-06-06 05:27] LABS: ALBUMIN 2.5 g/dL (3.2-5.0); ALKALINE PHOSPHATASE 61 u/l (38-126); BILIRUBIN, TOTAL 0.3 mg/dL (0.2-1.3); BUN 36 mg/dL (8-23); BUN/CREATININE RATIO 46 (12-20 (CALC)); CARBON DIOXIDE 24 mmol/l (22-30); CHLORIDE 103 mmol/l (95-108); CREATININE 0.8 mg/dL (0.7-1.3); GFR FOR AFR.AMER. > 60 ML/MIN (>=60 (CALC)); GFR OTHER RACES > 60 ML/MIN (>=60 (CALC)); MAGNESIUM 1.7 mg/dL (1.6-2.3); SGOT/AST 56 u/l (19-48); SODIUM 131 mmol/l (137-146); TOTAL PROTEIN 4.7 g/dL (6.3-8.2)
[2023-06-06 05:28] LABS: ANION GAP 8 (6-22 (CALC)); POTASSIUM 4.1 mmol/l (3.5-5.1)
[2023-06-06 07:02] VITALS: BP 109/64
--- NOTE | 2023-06-06 08:00 | NUR ---
PT RESTING IN BED WITH DAUGHTER AT BEDSIDE. ASSESSMENT COMPLETED. EXPIRATORY WHEEZING NOTED. EDEMA +1 NOTED IN LEGS BILATERALLY. GLUCOSE: 130 NO COVERAGE NEEDED PER SLIDING SCALE. PT ABLE TO OBEY COMMANDS ALERT AND ORIENATTED. MARIA IN PLACE DRAINING URINE VIA GRAVITY. SHOWING YELLOW URINE. IVF INFUSING PER EMAR. IV PATENT. FALL/SAFTEY PRECCAUTION IN PLACE, CALL LIGHT WITHIN REACH
--- NOTE | 2023-06-06 08:00 | NUR ---
PT RESTING IN BED WITH DAUGHTER AT BEDSIDE. ASSESSMENT COMPLETED. IV INTACT. INFUSING IVF PER EMAR. TELE MONITOR IN PLACE, CONTINOUS MONITORING PER ED. FALL/SAFTEY PRECAUTION IN PLACE. CALL LIGHT WITHIN REACH
[2023-06-06] MEDS ORDERED: CIPROFLOXACN500 MG PO (09:34)
[2023-06-06 10:50] VITALS: BP 126/57
--- NOTE | 2023-06-06 12:00 | NUR ---
PT EATING LUNCHC. NO DISTRESS NOTED. FALL/SAFTEY PRECAUTION IN PLACE CALL LIGHT WITHIN REACH
--- NOTE | 2023-06-06 13:17 | NUR ---
PT ASSISTED TO BEDSIDE COMODE. PT ABLE TO AMBULATE WITH 1X ASSIST. FALL/SAFTEY PRECAUTION IN PLACE. CALL LIGHT WITHIN REACH
--- NOTE | 2023-06-06 14:11 | NUR ---
Discharge instructions given. Patient verbalizes understanding of same. Discharged in stable condition via [facility] with staff. All belongings sent with pt. TELE REMOVED PUT AT NURSES STATION
== END 2023-06-06 14:11 | DRG 872 ==
LOC: ED 12:32 → ED-I 14:50 → MS2 14:58 → ED 14:58 → MS2 14:58
PROVIDERS: Nurse Practitioner; Nurse Practitioner Family; ADMIT Student in an Organized Health Care Education/Training Program; ATTEND Student in an Organized Health Care Education/Training Program
PROC: 0T9B70Z Drainage of Bladder with Drainage Device, Via Natural or Artificial Opening (ICD-10-PCS; principal; 2023-06-03)
PROC: 30233N1 Transfusion of Nonautologous Red Blood Cells into Peripheral Vein, Percutaneous Approach (ICD-10-PCS; 2023-06-05)
DX: A41.59 Other Gram-negative sepsis (principal); N30.00 Acute cystitis without hematuria; S06.9X1A Unspecified intracranial injury with loss of consciousness of 30 minutes or less, initial encounter; E11.649 Type 2 diabetes mellitus with hypoglycemia without coma; E83.42 Hypomagnesemia; R33.9 Retention of urine, unspecified; D64.9 Anemia, unspecified; S80.212A Abrasion, left knee, initial encounter; S80.211A Abrasion, right knee, initial encounter; S00.412A Abrasion of left ear, initial encounter; S50.812A Abrasion of left forearm, initial encounter; N40.0 Benign prostatic hyperplasia without lower urinary tract symptoms; E78.5 Hyperlipidemia, unspecified; K21.9 Gastro-esophageal reflux disease without esophagitis; W19.XXXA Unspecified fall, initial encounter; Z79.84 Long term (current) use of oral hypoglycemic drugs; Z91.81 History of falling
CPT/HCPCS: J0692; J1650; J3475; P9016